=== PATIENT | male | born 1955 | race Caucasian/White ===

== ENCOUNTER 2017-03-22 06:15 | Day surgery (SDC) | payer OTHER ==
[~2017-03-22] VITALS: Ht 177.8 cm; Wt 82.8 kg
[2017-03-22] VITALS (11 sets, daily range): BP systolic 110–137; BP diastolic 63–81; PULSE 72–92; RESP 12–20; Ht 177.8 cm; Wt 82.8 kg
[~2017-03-22 06:15] MED LIST: BUPIVACAINE 0.25% (MPF) 10 ML 10 ML VIAL INJ ONE; CEFAZOLIN 1 GM/50 ML (PMX) 50 ML IVPB ONE; HYDR-762 PO; POLY10DR19 LEFT EYE; SOD CHLORIDE 0.9% 1,000 ML IV ONE; TRAM50TA2 PO
[2017-03-22] MEDS ORDERED: BUPIVACAINE 0.25% (MPF) 10 ML 10 ML VIAL ONE (06:47)
[2017-03-22] MEDS ORDERED: CARV6.2579 PO (07:10)
[2017-03-22] MEDS ORDERED: ASPI-664 PO (07:10)
[2017-03-22] MEDS ORDERED: LISI10TA2 PO (07:10)
[2017-03-22] MEDS ORDERED: FURO20TA3 PO (07:10)
[2017-03-22] MEDS ORDERED: ONDA8TAB83 PO (07:10)
[2017-03-22] MEDS ORDERED: MIDAZOLAM 1 MG/ML 2 ML INJ ONE (07:32)
[2017-03-22] MEDS ORDERED: PROPOFOL 20 ML ONE (07:32)
[2017-03-22] MEDS ORDERED: LIDOCAINE 1% (MDV) 20 ML INJ ONE (07:33)
[2017-03-22] MEDS ORDERED: ROPIVACAINE 0.2% 20 ML VIAL ONE (07:33)
[2017-03-22] MEDS ORDERED: PHENYLephrine (100 MCG/ML) 5ML SYG ONE ×2 (07:44→07:54)
[2017-03-22] MEDS ORDERED: CEFAZOLIN 1 GM INJ ONE (07:53)
[2017-03-22] MEDS ORDERED: FENTAnyl 50 MCG/ML VIAL ONE ×2 (07:56→08:07)
[2017-03-22] MEDS ORDERED: ONDANSETRON 4 MG INJ ONE (08:04)
[2017-03-22] MEDS ORDERED: DEXAMETHASONE 4 MG/ML 1 ML INJ ONE (08:04)
[2017-03-22] MEDS ORDERED: FAMOTIDINE 20 MG INJ ONE (08:04)
[2017-03-22] MEDS ORDERED: KETOROLAC 30 MG INJ ONE (08:39)
--- NOTE | 2017-03-22 08:39 | OPR ---
Date/Time of Note Date/Time of Note DATE: 03/22/17 TIME: 08:39 Operative Report Preoperative Diagnosis LIH incarcerated with colon Postoperative Diagnosis same Operation/Procedure Performed open incarcerated left inguinal hernia repair with large ultrapro system mesh Surgeon: Ibrahima RODARTE G. SEONG Mar 22, 2017 08:39
[2017-03-22] MEDS ORDERED: DIPHENHYDRAMINE 50 MG INJ IV PRN (09:00)
[2017-03-22] MEDS ORDERED: MEPERIDINE 25 MG INJ IV PRN (09:00)
[2017-03-22] MEDS ORDERED: HYDROmorphONE (0.2 MG/ML) 10ML SYG IV PRN ×2 (09:00)
[2017-03-22] MEDS ORDERED: hydrALAzine 20 MG INJ IV PRN (09:00)
[2017-03-22] MEDS ORDERED: HYDROCODONE/APAP (5/325) TAB PO ONE (09:30)
--- NOTE | 2017-03-22 11:01 | OPR ---
DATE OF OPERATION: 03/22/2017 INDICATION: This is a 61-year-old male with a very large incarcerated left inguinal hernia. He req uests surgical repair. Risks, alternatives, benefits, and personnel were discussed with the patient . Patient expressed understanding and consents to operation. PREOPERATIVE DIAGNOSIS: Incarcerated large incarcerated left inguinal hernia. POSTOPERATIVE DIAGNOSIS: Incarcerated large incarcerated left inguinal hernia. OPERATION: Open left incarcerated inguinal hernia repair with large size Ultrapro hernia system mes h. SURGEON: Bella Negron MD SPECIMENS: None. COMPLICATIONS: None. ANESTHESIA: General. DESCRIPTION OF PROCEDURE: The patient was taken to the OR and prepped and draped in the usual steri le fashion. Surgical timeout was performed. IV antibiotics were given. Left inguinal oblique inci fidencio was made with a 10 blade. Dissection cautery was carried down to the external oblique fascia w hich was opened with a 15 blade. This incision is extended medial inferiorly and lateral superiorly with Metzenbaum scissors. Cord structures and a large incarcerated hernias identified with colon. This all reduced manually with careful dissection. The disk portion of the UltraPro hernia system mesh was used to reinforce the hernia defect with a running 0-Prolene from the pubic tubercle along the shelving edge of the inguinal ligament and superiorly to the internal oblique with interrupted 3 -0 Vicryl. Onlay mesh was secured in a similar fashion with a running 0 Prolene from the pubic tube rcle along the shelving of the inguinal ligament and straps are created and reapproximated around th e cord structures to recreate the inguinal ring. Onlay mesh was secured superiorly to the internal oblique with interrupted 3-0 Vicryl. External oblique fascia was closed with running 3-0 Vicryl. S carpa's was closed with interrupted 3-0 Vicryl. Skin was closed using skin camden. Dry dressings were applied. Dictated By: BELLA VINSON/JESSICA Conf#: [id number] DID#: [id number]
== END 2017-03-22 10:55 | disposition home or self-care (01) ==
LOC: SDS 06:15
PROVIDERS: ATTEND Surgery
DX: K40.30 Unilateral inguinal hernia, with obstruction, without gangrene, not specified as recurrent (principal); I10 Essential (primary) hypertension
CPT/HCPCS: 49507; C1781; J0690; J1100; J1170; J1885; J2175; J2250; J2370; J2405; J2795; J3010; Z7512; Z7610

== ENCOUNTER 2017-07-28 03:28 | Emergency (ER) | payer OTHER ==
[~2017-07-28] VITALS: Ht 172.7 cm; Wt 86.5 kg
[~2017-07-28 03:28] MED LIST changes: +ASPI-664 PO; -BUPIVACAINE 0.25% (MPF) 10 ML 10 ML VIAL INJ ONE; +CARV6.2579 PO; -CEFAZOLIN 1 GM/50 ML (PMX) 50 ML IVPB ONE; +FURO20TA3 PO; -HYDR-762 PO; +LISI10TA2 PO; +ONDA8TAB83 PO; -POLY10DR19 LEFT EYE; -SOD CHLORIDE 0.9% 1,000 ML IV ONE; -TRAM50TA2 PO
[2017-07-28 03:37] VITALS: Ht 172.7 cm; Wt 86.5 kg
[2017-07-28] MEDS ORDERED: CLINDAMYCIN 900 MG/D5W (PMX) 50 ML IVPB STA (04:21)
[2017-07-28] MEDS ORDERED: ACETAMINOPHEN 325 MG TAB PO STA (04:21)
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
[2017-07-28] MEDS ORDERED: SOD CHLORIDE 0.9% 1,000 ML IV ONE (04:30)
--- NOTE | 2017-07-28 05:33 | RADRPT ---
PROCEDURE: US Lower extremity Venous. CLINICAL INDICATION: PVD, DVT TECHNIQUE: Multiple sonographic images of the bilateral lower extremity deep venous system was obt ained utilizing grayscale, color-flow, compressive sonography and doppler imaging with augmentation. The images were reviewed on a PACS workstation. COMPARISON: None. FINDINGS: There is normal compressibility and flow within the bilateral common femoral, superficial femoral, posterior tibial, peroneal and popliteal veins. IMPRESSION: No sonographic evidence for deep venous thrombosis. Physician Daly Date Time Electronically viewed and signed by Physician Daly on 07/28/2017 05:32 CS/
[2017-07-28] MEDS ORDERED: CLIN-73 PO (06:43)
[2017-07-28] MEDS ORDERED: ACET500C5 PO (06:43)
[2017-07-28 07:08] VITALS: BP 128/77; PULSE 74; RESP 19; TEMP 98.3
== END 2017-07-28 07:09 | disposition home or self-care (01) ==
LOC: FTE 03:28
DX: L03.116 Cellulitis of left lower limb (principal); L03.115 Cellulitis of right lower limb; I10 Essential (primary) hypertension; M79.605 Pain in left leg; Z79.82 Long term (current) use of aspirin
CPT/HCPCS: 36415; 80053; 85025; 85610; 85730; 93970; 96374; J7030; Z7502; Z7610

== ENCOUNTER → 2017-09-22 | Day surgery (SDC) | payer OTHER ==
[2017-09-22] VITALS (13 sets, daily range): BP systolic 96–157; BP diastolic 53–94; PULSE 64–74; RESP 17–20; Ht 168.3 cm; Wt 86.5 kg
[~2017-09-22] VITALS: Ht 168.3 cm; Wt 86.5 kg
[~2017-09-22] MED LIST changes: +ACET500C5 PO; +ATOR40TA68 PO; +BP MED PO; +CIPROFLOXACIN 400 MG in D5W 200 ML IVPB SCH; +CIPROFLOXACIN 400MG/D5W 200 ML ONE; +CLIN-73 PO; +DEXAMETHASONE 4 MG/ML 1 ML INJ ONE; +DIPHENHYDRAMINE 50 MG INJ IV PRN; +EPHEDrine SULFATE 50 MG/5 ML SYG IV PRN; +FENTAnyl 50 MCG/ML VIAL IV PRN; +FENTAnyl 50 MCG/ML VIAL ONE; +GLYCOPYRROLATE 0.4 MG INJ ONE; +HYDROmorphONE (0.2 MG/ML) 10ML SYG IV PRN; +IOHEXOL 300MG/ML 30 ML BTL ONE; +KETOROLAC 30 MG INJ ONE; +LABETALOL HCL 20MG INJ IV PRN; +MEPERIDINE 25 MG INJ IV PRN; +METOCLOPRAMIDE 10 MG INJ IV PRN; +METOCLOPRAMIDE 10 MG INJ ONE; +MIDAZOLAM 1 MG/ML 2 ML INJ ONE; +NEOSTIGMINE 3 MG/3 ML SYRINGE ONE; +ONDANSETRON 4 MG INJ IV PRN; +ONDANSETRON 4 MG INJ ONE; +OXYCODONE/ACETAMINOPHEN (5/325) TAB PO PRN; +PHENYLephrine (100 MCG/ML) 5ML SYG ONE; +PROPOFOL 20 ML ONE; +ROCURONIUM 50 MG INJ ONE; +hydrALAzine 20 MG INJ IV PRN
--- NOTE | 2017-09-22 09:11 | PDOCDIS ---
Discharge Instructions CONDITION Patient Condition: Good HOME CARE INSTRUCTIONS: Diet Instructions: Regular ACTIVITY: Activity Restrictions: No Restrictions FOLLOW UP/APPOINTMENTS Follow-up Plan next week for removal of stent, call for time and date REFERRALS Other Referrals none OTHER ORDERS: Other Orders: none SCHOOL/WORK RELEASE May return to School/Work on: Sep 29, 2017 MONCHO JEFFERSON Sep 22, 2017 09:11
--- NOTE | 2017-09-22 09:15 | OPR ---
Date/Time of Note Date/Time of Note DATE: 09/22/17 TIME: 09:13 Operative Report Procedure Date: Sep 22, 2017 Preoperative Diagnosis left ureteral stone Postoperative Diagnosis same Operation/Procedure Performed removal left stent, removal stone, insertion left ureteral stent Surgeon jaspreet Christmas Tree Grader none Anesthesia Type: general Estimated Blood Loss: none Transfusion none Specimen stone Grafts/Implants none Tubes/Drains 24 cm - 6f stent Complications none Procedure Description dictation number [id number] MONCHO JEFFERSON Sep 22, 2017 09:15
--- NOTE | 2017-09-22 11:08 | OPR ---
DATE OF OPERATION: PREOPERATIVE DIAGNOSIS: Retained stent and impacted distal left ureteral calculi. POSTOPERATIVE DIAGNOSIS: Retained encrusted stent impacted distal left ureteral calculi. OPERATION PERFORMED: Cystoscopy, removal of fragmented left ureteral stent, left retrograde pyelogr am, ureteroscopy with basketing of stone, insertion, left ureteral stent. SURGEON: Jossue Mercer MD ANESTHESIA: General. COMPLICATIONS: None. ESTIMATED BLOOD LOSS: Negligible. PATHOLOGY: Stone. DESCRIPTION OF PROCEDURE: The patient was brought into the operating room and placed on the operati ng room table in the supine lithotomy position. He was prepped and draped in the usual fashion afte r anesthesia was induced. A timeout was undertaken. Appropriate pressure points were padded. He r eceived preoperative antibiotic therapy. Sequential compression devices were applied. A KUB with o bliques was obtained which demonstrated an increase in bowel gas pattern as well as a left ureteral stent. No ureteral stone could be observed. Rigid cystoscopy was undertaken with a 12-degree, 30-d egree and 70-degree angle lens. Within the pendulous portion of the penile urethra, a string was id entified. Utilizing the flexible graspers, the string was brought up to the level of the urethral m eatus, which allowed for partial removal of the stent. The stent was noted to be markedly encrusted and thus a wire was unable to be placed into the lumen. The distal 1 cm aspect of the stent was cu t with the Agustin scissors. The lumen was completely occluded and did not allow for a wire to be plac ed up to the level of the renal pelvis. Gentle pressure was applied on the stent to remove it in a retrograde fashion. Approximately 2 inches of the stent cracked at this point and only the distal 2 cm was removed. Repeat cystoscopy demonstrated the stent to be protruding from the ureteral orific e and the remaining of the stent was in the bladder. With the rigid cystoscope at the level of the ureteral orifice, and utilizing flexible graspers with gentle manipulation, the remaining portion of the stent was removed intact. The entire stent was then removed from the surgical field. A left r etrograde pyelogram was undertaken which demonstrated a markedly irregular course of the ureter with multiple filling defects as well as marked hydronephrosis within the kidney. A very large nondescr ipt collection of contrast was noted up within the renal pelvis. A wire was placed up to this level . Due to the above findings and the patient's known history, we decided to undertake ureteroscopy w ithout any difficulty. Ureteroscope was placed into the distal ureter marking around inflammatory r esponse could be appreciated with evaluating the ureter from the level of the ureteral orifice up to the level of the renal pelvis. Initially a stone clip was not able to be visualized. The ureteros cope was easily traversed through this region and up until the level of the renal pelvis, 50 mL of c oncentrated urine was drained from the renal pelvis and a repeat retrograde pyelogram was undertaken demonstrating contrast within a dilated renal pelvis and calices. There was no noted extravasation . The ureter was then evaluated in an antegrade fashion in the distal ureter adjacent to a marked a mount of inflammatory response. A stone was embedded into the wall utilizing a 3.09 nitinol tipless basket. This was removed off of the wall and placed into a basket and then removed intact. Repeat ureteroscopy did not demonstrate any further stone burden. There were no fragments of the stent wi thin the ureter due to marked inflammatory response and above findings, it was decided to insert a s tent. A 24 cm 6-Arabic double-J ureteral stent was inserted with the proximal aspect coiling within the renal pelvis and the distal aspect coiling within the bladder. Attached to the distal end was a tapered string. Proper positioning was confirmed with direct vision, fluoroscopy and a KUB. His bladder was emptied and was transferred to recovery room in stable condition. He will be discharged home on Bactrim-DS 1 tab p.o. b.i.d. for 5 days' time, dispense #10, and [place] 5/325 one tab p.o. q .6h, dispense #30, no refill. He will follow up next week for cystoscopy, stent removal. The patie nt has been advised on several occasions the importance of removal of a timely stent so as once agai n to avoid encrustation. All questions have been answered. There are no noted complications. Dictated By: JOSSUE WONG/JESSICA Conf#: [id number] DID#: [id number]
--- NOTE | 2017-09-22 12:32 | HPN ---
Date/Time of Note Date/Time of Note DATE: 09/22/17 TIME: 12:31 Interval H&P Admission Note Pt. seen H&P reviewed: No system changes MONCHO JEFFERSON Sep 22, 2017 12:32
--- NOTE | 2017-09-22 20:34 | RADRPT ---
PROCEDURE: Intraoperative imaging of the abdomen and pelvis with fluoroscopy. CLINICAL INDICATION: Abdominal pain. Intraoperative. TECHNIQUE: 3 images of the abdomen and pelvis were obtained in the operating room with an image in tensifier. No radiologist was in attendance. Fluoroscopy time is 32.1 seconds. COMPARISON: CT scan of the abdomen and pelvis dated November 09, 2015. FINDINGS: Images demonstrate instrumentation of the left ureter and left renal pelvis and subsequent placement of a double pigtail left ureteral stent. IMPRESSION: 1. Satisfactory intraoperative imaging of the abdomen and pelvis. RPTAT: QQ .Wilber Palafox MD, Date Time Electronically viewed and signed by .Wilber Palafox MD, on 09/22/2017 20:34 .R/
== END | disposition home or self-care (01) ==
LOC: SDS 05:26
PROVIDERS: ATTEND Urology
DX: N20.2 Calculus of kidney with calculus of ureter (principal); N39.0 Urinary tract infection, site not specified; R32 Unspecified urinary incontinence
CPT/HCPCS: 52356; 74420; J0744; J1100; J1885; J2250; J2370; J2405; J2710; J2765; J3010; Q9967; Z7610; 88300; C2617